=== PATIENT | female | born 1990 | race Hispanic/Latino ===

== ENCOUNTER 2023-07-31 10:00 | Inpatient (IN) | payer MEDICAID, OTHER, SELFPAY ==
[2023-07-28 13:26] LABS: Hematocrit 38.5 % (34.9-44.5); Hemoglobin 13.1 g/dL (12.0-15.5); Platelet Count 244 10x3/uL (150-450)
[2023-07-28 14:02] LABS: HBSAg Index 0.22 S/CO (0-0.99); Hep B Surf Ag Non-Reactive S/CO (NonReactive)
[2023-07-28 14:06] LABS: Syphilis Antibody Nonreactive (Nonreactive); Syphilis Antibody Index 0.05 S/CO (<1.00 Non-Reactive)
[2023-07-31 10:21] VITALS: BMI 32.6
[2023-07-31] MEDS ORDERED: Oxytocin 30 units/NS 500 ML 500 ML IV SCH (10:22)
[2023-07-31] MEDS ORDERED: Lactated Ringer's 1,000 ML IV SCH (10:22)
[2023-07-31] MEDS ORDERED: Misoprostol 200 MCG TAB PR PRN (10:22)
[2023-07-31] MEDS ORDERED: hydrALAZINE 20 MG/ML VIAL SLOW IVP PRN ×2 (10:22→15:19)
[2023-07-31] MEDS ORDERED: CEFAZOLIN 2 GM in Sodium Chloride 0.9% 100 ML IVPB SCH (10:22)
[2023-07-31] MEDS ORDERED: Ondansetron PF 4 MG/2 ML Vial IVP PRN ×4 (10:22→15:19)
[2023-07-31] MEDS ORDERED: Famotidine/PF 20 mg/2ml Vial SLOW IVP PRN (10:22)
[2023-07-31] MEDS ORDERED: Diphenoxylate HCl/Atropine Tablet PO PRN (10:22)
[2023-07-31] MEDS ORDERED: Tranexamic Acid 1,000 MG/10 ML VIAL IVP PRN (10:22)
[2023-07-31] MEDS ORDERED: Carboprost 250 MCG/ML AMP IM PRN (10:22)
[2023-07-31] MEDS ORDERED: Methylergonovine 0.2 MG/ML VIAL IM PRN (10:22)
[2023-07-31] MEDS ORDERED: Promethazine HCl 25 MG/ML VIAL IM PRN ×3 (10:22→15:19)
[2023-07-31] MEDS ORDERED: Bicitra 30 ML UDCUP PO PRN (10:22)
[2023-07-31] MEDS ORDERED: Erythromycin Base 0.5% Oint 1 GM TUBE ONE (11:32)
[2023-07-31] MEDS ORDERED: Phytonadione Neonatal 1 MG/0.5 ML AMP ONE (11:32)
[2023-07-31] MEDS ORDERED: Hepatitis B Vaccine 10 MCG/0.5 ML SYR ONE (11:32)
[2023-07-31] MEDS ORDERED: Morphine PF 10 MG/10 ML VIAL ONE (11:34)
[2023-07-31] MEDS ORDERED: Phenylephrine 40 MG/NS 250 ML 250 ML ONE (11:35)
[2023-07-31] MEDS ORDERED: fentaNYL 50 mcg/mL 1 mL Vial ONE (11:35)
[2023-07-31] MEDS ORDERED: Oxytocin 10 UNITS/ML VIAL ONE (11:36)
[2023-07-31] MEDS ORDERED: Ondansetron PF 4 MG/2 ML Vial ONE (11:36)
[2023-07-31] MEDS ORDERED: Naloxone HCl 0.4 mg/ml Vial IV PRN (13:21)
[2023-07-31] MEDS ORDERED: diphenhydrAMINE 50 MG/ML VIAL IVP PRN (13:21)
[2023-07-31] MEDS ORDERED: Ketorolac Tromethamine 30 MG (1 mL) VIAL IVP PRN (13:21)
[2023-07-31] MEDS ORDERED: Moisturizing Cream (Eucerin) 113 GM JAR TOP PRN (13:21)
[2023-07-31] MEDS ORDERED: HYDROmorphone 0.5 MG/0.5 ML SYRINGE SLOW IVP PRN (13:21)
[2023-07-31] MEDS ORDERED: Naloxone HCl 0.4 mg/ml Vial IVP PRN ×2 (13:21)
[2023-07-31] MEDS ORDERED: Promethazine HCl 25 MG SUPP PR PRN (13:21)
[2023-07-31] MEDS ORDERED: fentaNYL 50 mcg/mL 1 mL Vial SLOW IVP PRN (13:21)
[2023-07-31] MEDS ORDERED: Meperidine HCl/PF 25 MG (1 mL) VIAL SLOW IVP PRN (13:21)
[2023-07-31] MEDS ORDERED: Communication Order-Pharmacy FS SCH (13:30)
[2023-07-31] MEDS ORDERED: Ketorolac Tromethamine 30 MG (1 mL) VIAL IVP SCH (13:30)
[2023-07-31] MEDS ORDERED: diphenhydrAMINE 25 MG CAP PO PRN (15:19)
[2023-07-31] MEDS ORDERED: Boostrix 0.5 ML (Tdap) VIAL (>/=7 yrs of age) IM ONE (15:19)
[2023-07-31] MEDS ORDERED: Bisacodyl 10 MG SUPP PR PRN (15:19)
[2023-07-31] MEDS: Docusate 100 MG CAP PO SCH (20:57)
[2023-07-31] MEDS: Ketorolac Tromethamine 30 MG (1 mL) VIAL IVP SCH (20:57)
[2023-07-31] MEDS: Ferrous Sulfate 325 MG TAB PO SCH (21:00)
[2023-08-01] MEDS ORDERED: Meperidine HCl/PF 25 MG (1 mL) VIAL IM PRN (01:30)
[2023-08-01] MEDS ORDERED: HYDROcodone/Acetaminophen 5/325 mg Tablet PO PRN (01:30)
[2023-08-01] MEDS: Ketorolac Tromethamine 30 MG (1 mL) VIAL IVP SCH ×2 (01:57→08:11)
[2023-08-01 04:27] LABS: Hematocrit 27.5 % (34.9-44.5); Hemoglobin 9.4 g/dL (12.0-15.5); Mean Corpuscular HGB CONC 34.2 g/dL (32.0-36.0); Mean Corpuscular Hemoglobin 27.4 pg (27.0-33.0); Mean Corpuscular Volume 80.2 fl (81.6-98.3); Platelet Count 187 10x3/uL (150-450); RBC Distribution Width 15.2 % (11.5-14.5); Red Blood Cell (RBC) Count 3.43 10x6/uL (3.90-5.03); White Blood Cell (WBC) Count 13.1 10x3/uL (3.5-10.5)
[2023-08-01] MEDS: Ferrous Sulfate 325 MG TAB PO SCH ×2 (08:11→21:06)
[2023-08-01] MEDS: Docusate 100 MG CAP PO SCH ×2 (08:11→21:06)
[2023-08-01] MEDS: Ibuprofen 800 MG TAB PO SCH ×2 (14:04→21:06)
[2023-08-01] MEDS: HYDROcodone/Acetaminophen 5/325 mg Tablet PO PRN (18:00)
[2023-08-01] MEDS: Simethicone Chewable 80 MG TAB PO PRN (23:53)
[2023-08-02] MEDS: Ibuprofen 800 MG TAB PO SCH ×3 (06:08→21:13)
[2023-08-02] MEDS: HYDROcodone/Acetaminophen 5/325 mg Tablet PO PRN ×3 (06:09→17:40)
[2023-08-02] MEDS: Ferrous Sulfate 325 MG TAB PO SCH ×2 (08:21→21:13)
[2023-08-02] MEDS: Docusate 100 MG CAP PO SCH ×2 (08:21→21:13)
[2023-08-02] MEDS: Simethicone Chewable 80 MG TAB PO PRN (10:17)
[2023-08-03] MEDS: HYDROcodone/Acetaminophen 5/325 mg Tablet PO PRN (04:13)
[2023-08-03] MEDS: Ibuprofen 800 MG TAB PO SCH (05:15)
[2023-08-03 08:13] VITALS: BP 107/55; TEMP 98
[2023-08-03] MEDS: Ferrous Sulfate 325 MG TAB PO SCH (08:34)
[2023-08-03] MEDS: Docusate 100 MG CAP PO SCH (08:34)
== END 2023-08-03 11:15 | disposition home or self-care (01) | DRG 788 ==
LOC: CSHLD 10:00 → CSHPP 15:20
PROVIDERS: ADMIT Family Medicine; ATTEND Family Medicine
PROC: 10D00Z1 Extraction of Products of Conception, Low, Open Approach (ICD-10-PCS; principal; 2023-07-31)
PROC: 3E0P05Z Introduction of Adhesion Barrier into Female Reproductive, Open Approach (ICD-10-PCS; 2023-07-31)
DX: O34.211 Maternal care for low transverse scar from previous cesarean delivery (principal); Z3A.39 39 weeks gestation of pregnancy; Z37.0 Single live birth
CPT/HCPCS: 36415; 51702; 85014; 85018; 85027; 85049; 86780; 86850; 86900; 86901; 87340; J1885; J2210; J2274; J2405; J2590; J3010; J3490; J7120; S0028